=== PATIENT | female | born 1980 | race Caucasian/White ===

== ENCOUNTER 2019-09-06 11:46 | Emergency (ER) | payer MEDICARE, MEDICAID ==
[2019-09-06 11:58] VITALS: BP 125/77; PULSE 98
[2019-09-06] MEDS ORDERED: LORazepam 2 MG/ML SDV IVPUSH ONE (12:10)
[2019-09-06] MEDS ORDERED: Sodium Chloride 0.9% 10 ML Syringe FLUSH PRN (12:14)
[2019-09-06] MEDS ORDERED: Sodium Chloride 0.9% 1,000 ML IV SCH (12:15)
--- NOTE | 2019-09-06 12:23 | EDM.PDOC ---
ED HPI GENERAL MEDICAL PROBLEM - General Chief Complaint: Neurological Problem Stated Complaint: [facility] Time Seen by Provider: 09/06/19 12:04 Source of Information: Reports: Patient History Limitations: Reports: No Limitations - History of Present Illness INITIAL COMMENTS - FREE TEXT/NARRATIVE: Patient is a 38-year-old female who presents via EMS today with complaints of a seizure. Patient is a resident of [facility]. She does have a history of complex partial seizures but has been fairly well-controlled on her current medication regimen which is Trileptal 600 mg twice daily Patient's care staff states that prior to the ambulance being summoned, the patient was sitting in a chair and she went unresponsive, lips turned blue, and she stiffened up for what they thought was maybe a couple minutes. The caregiver states that there were no tonic-clonic movements with this seizure and she did not fall from the chair. After this she did regain consciousness and has been acting appropriate since that time. Her caregiver states that just prior to this occurring she had notified them that she's been having some frequency and burning with urination so they were in the process of getting a urinalysis on her. The caregiver also reports that often times when she does have seizures, she has a low sodium level. She states that they have been restricting her water intake as excessive water intake was determined to be the cause of her low sodium. Prior to today her last seizure was in April 2018. Her neurologist is Dr. Aragon and she does have an appointment scheduled with him this coming Monday. Patient states that she is feeling normal at this time. She denies any nausea or headache. - Related Data Allergies Allergy/AdvReac Type Severity Reaction Status Date / Time Penicillins Allergy Other Verified 09/06/19 11:58 Home Meds: Home Meds Citalopram [Celexa] 40 mg PO BID 07/06/16 [History] ClomiPRAMINE [ClomiPRAMINE HCl] 50 mg PO DAILY 07/06/16 [History] ClonazePAM [KlonoPIN] 0.5 mg PO BID 07/06/16 [History] LORazepam [Ativan] 0.25 mg PO TID PRN 07/06/16 [History] Levonorgestrel-Ethin Estradiol [Introvale 0.15-0.03 mg Tablet] 1 dose PO DAILY 07/06/16 [History] Levothyroxine [Synthroid] 50 mcg PO ACBREAKFAST 07/06/16 [History] Magnesium Oxide 400 mg PO BID 07/06/16 [History] Multivit-Min/FA/Lycopen/Lutein [Certavite Sr with Lutein Tab] 1 each PO DAILY [History] OXcarbazepine [Trileptal] 600 mg PO BID 07/06/16 [History] QUEtiapine Fumarate [Seroquel] 50 mg PO BEDTIME 07/06/16 [History] QUEtiapine [SEROquel] 25 mg PO BID 07/06/16 [History] atoMOXetine HCl [Strattera] 80 mg PO DAILY 07/06/16 [History] Past Medical History HEENT History: Reports: Impaired Vision Neurological History: Reports: Seizure Psychiatric History: Reports: Developmental Delay Social & Family History - Tobacco Use Smoking Status *Q: Never Smoker - Caffeine Use Caffeine Use: Reports: None - Recreational Drug Use Recreational Drug Use: No - Living Situation & Occupation Living situation: Reports: Extended Care Facility Occupation: Disabled ED ROS GENERAL - Review of Systems Review Of Systems: Comprehensive ROS is negative, except as noted in HPI. - Physical Exam Exam: See Below Exam Limited By: No Limitations General Appearance: Alert, WD/WN, No Apparent Distress Eye Exam: Bilateral Eye: PERRL Throat/Mouth: Normal Inspection, Normal Lips, Normal Oropharynx, No Airway Compromise. No: Evidence of Tongue Biting Head Exam: Atraumatic, Normocephalic Respiratory/Chest: No Respiratory Distress, Lungs Clear, Normal Breath Sounds, No Accessory Muscle Use, Chest Non-Tender Cardiovascular: Normal Peripheral Pulses, Regular Rate, Rhythm, No Edema, No Murmur GI/Abdominal: Normal Bowel Sounds, Soft, Non-Tender Neuro Exam (Abbreviated): Alert, Oriented, Normal Cognition, Normal Reflexes, No Motor/Sensory Deficits Psychiatric: Normal Affect, Normal Mood Skin Exam: Warm, Dry, Intact, Normal Color, No Rash Course - Vital Signs Last Recorded V/S: Last Vital Signs Temp 96.8 F 09/06/19 11:54 Pulse 98 09/06/19 11:54 Resp 19 09/06/19 11:54 BP 125/77 09/06/19 11:54 Pulse Ox 95 09/06/19 11:54 - Orders/Labs/Meds Orders: Active Orders 24 hr Category Date Time Status Cardiac Monitoring [RC] . DIRECTED Care 09/06/19 12:14 Active Peripheral IV Care [RC] . DIRECTED Care 09/06/19 12:14 Active OXCARBAZEPINE [REF] Routine Lab 09/06/19 11:56 Received Sodium Chloride 0.9% [Normal Saline] 1,000 ml Med 09/06/19 12:15 Active IV ASDIRECTED Sodium Chloride 0.9% [Saline Flush] Med 09/06/19 12:14 Active 10 ml FLUSH ASDIRECTED PRN Peripheral IV Insertion Adult [OM.PC] Stat Oth 09/06/19 12:14 Ordered Medication Orders Sodium Chloride (Normal Saline) 1,000 mls @ 999 mls/hr IV ASDIRECTED MELLY Last Admin: 09/06/19 12:23 Dose: 150 mls/hr Sodium Chloride (Saline Flush) 10 ml FLUSH ASDIRECTED PRN PRN Reason: Keep Vein Open Last Admin: 09/06/19 12:23 Dose: 10 ml Labs: Laboratory Tests 09/06/19 09/06/19 09/06/19 Range/Units 11:56 11:56 14:03 WBC 3.79 L (3.98-10.04) K/mm3 RBC 4.42 (3.98-5.22) M/mm3 Hgb 13.5 (11.2-15.7) gm/dl Hct 40.3 (34.1-44.9) % MCV 91.2 D (79.4-94.8) fl MCH 30.5 (25.6-32.2) pg MCHC 33.5 (32.2-35.5) g/dl RDW Std Deviation 42.2 (36.4-46.3) fL Plt Count 274 (182-369) K/mm3 MPV 10.4 (9.4-12.3) fl Neut % (Auto) 60.8 (34.0-71.1) % Lymph % (Auto) 26.6 (19.3-51.7) % [place] % (Auto) 12.1 (4.7-12.5) % Eos % (Auto) 0 L (0.7-5.8) Baso % (Auto) 0.5 (0.1-1.2) % Neut # (Auto) 2.30 (1.56-6.13) K/mm3 Lymph # (Auto) 1.01 L (1.18-3.74) K/mm3 [place] # (Auto) 0.46 H (0.24-0.36) K/mm3 Eos # (Auto) 0.00 L (0.04-0.36) K/mm3 Baso # (Auto) 0.02 (0.01-0.08) K/mm3 Sodium 131 L (136-145) mEq/L Potassium 4.0 (3.5-5.1) mEq/L Chloride 95 L (98-107) mEq/L Carbon Dioxide 20 L (21-32) mEq/L Anion Gap 20.0 H (5-15) BUN 19 H (7-18) mg/dL Creatinine 0.7 (0.55-1.02) mg/dL Est Cr Clr Drug Dosing 78.27 mL/min Estimated GFR (MDRD) > 60 (>60) mL/min BUN/Creatinine Ratio 27.1 H (14-18) Glucose 113 H (74-106) mg/dL Calcium 8.8 (8.5-10.1) mg/dL Total Bilirubin 0.3 (0.2-1.0) mg/dL AST 25 (15-37) U/L ALT 28 (14-59) U/L Alkaline Phosphatase 68 (46-116) U/L Total Protein 7.5 (6.4-8.2) g/dl Albumin 3.7 (3.4-5.0) g/dl Globulin 3.8 gm/dL Albumin/Globulin Ratio 1.0 (1-2) Urine Color Yellow (Yellow) Urine Appearance Clear (Clear) Urine pH 7.0 (5.0-8.0) Ur Specific [place] > or = 1.030 (1.005-1.030) Urine Protein 1+ H (Negative) Urine Glucose (UA) Negative (Negative) Urine Ketones Trace H (Negative) Urine Occult Blood Negative (Negative) Urine Nitrite Negative (Negative) Urine Bilirubin Negative (Negative) Urine Urobilinogen 0.2 (0.2-1.0) Ur Leukocyte Esterase Trace H (Negative) Urine RBC 0-5 (0-5) /hpf Urine WBC 0-5 (0-5) /hpf Ur Squamous Epith Cells 0-5 (0-5) /hpf Amorphous Sediment Few H (NOT SEEN) /hpf Urine Bacteria Few (FEW) /hpf Urine Mucus Moderate H (FEW) /hpf Meds: Medications Generic Name Dose Route Start Last Admin Trade Name Abdulaziz PRN Reason Stop Dose Admin Sodium Chloride 1,000 mls @ 999 mls/hr 09/06/19 12:15 09/06/19 12:23 Normal Saline IV 150 mls/hr ASDIRECTED MELLY Administration Sodium Chloride 10 ml 09/06/19 12:14 09/06/19 12:23 Saline Flush FLUSH 10 ml ASDIRECTED PRN Administration Keep Vein Open Discontinued Medications Generic Name Dose Route Start Last Admin Trade Name Freq PRN Reason Stop Dose Admin Lorazepam 0.5 mg 09/06/19 12:10 09/06/19 12:23 Ativan IVPUSH 09/06/19 12:11 0.5 mg ONETIME ONE Administration - Re-Assessments/Exams Free Text/Narrative Re-Assessment/Exam: On exam, patient is alert, oriented and acting appropriately. She does not remember the events of the seizure, however she does remember the events since the seizure occurred. Is no evidence of injury to her mouth. She did not fall and hit her head and she does have a chronic seizure disorder, so do not feel that a head CT is necessary at this time. We will check routine labs to include a CBC, CMP, and oxcarbazepine level. We will also check a urinalysis as the patient has been complaining of dysuria and frequency. I will give Ativan 0.5 mg IV to prevent further seizure activity as well as normal saline at 125 ml/hr. 09/06/19 12:45 Patient's sodium is mildly low at 131. Any gap is elevated at 20.0. We will increase her normal saline rate bolus 1 L. 09/06/19 14:46 Urinalysis is negative for any infection. Oxcarbazepine levels are send out labs of these results would not be available while in the ER today. Patient is feeling well and anxious to leave. There is been no further seizure activity since she arrived to the ER. I do not feel any adjustments are necessary in her medications today as overall she has been well-managed on this regimen. She does have a appointment with her neurologist on Monday. Recommend that they update him on today's occurrences. If she should have any recurrence of seizures over the weekend, I did recommend that they return to the emergency department. Departure - Departure Time of Disposition: 14:48 Disposition: Home, Self-Care 01 Condition: Good Clinical Impression: Breakthrough seizure - Discharge Information *PRESCRIPTION DRUG MONITORING PROGRAM REVIEWED*: No *COPY OF PRESCRIPTION DRUG MONITORING REPORT IN PATIENT [place]: No Instructions: Epilepsy, [id number], Seizure, Adult, [id number] Referrals: María Dawn MD [Primary Care Provider] - Forms: ED Department Discharge Additional Instructions: You were seen in the emergency department today after having a seizure at home. Lab lab work was done and did show that your sodium was mildly low at 131, but was otherwise normal. You did receive a liter of IV fluids while in the ER as well as a dose of Ativan. A urinalysis was completed and it was negative for any infection. There were no further seizures while in the ER. At this time, we recommend that you continue your current medication regimen. We did send out for an oxcarbazepine level to be completed. These results will likely not be available until early next week. Your neurologist may request these results on Monday or Monday. Keep your appointment with your neurologist on Monday and discuss today's occurrences with him at that time. If you should experience any recurrent seizures or any other concerning symptoms , please do not hesitate to return to the emergency department. Sepsis Event Note - Evaluation Sepsis Screening Result: No Definite Risk - Focused Exam Vital Signs: Vital Signs Temp Pulse Resp BP Pulse Ox 09/06/19 11:54 96.8 F 98 19 125/77 95 Date Exam was Performed: 09/06/19 Time Exam was Performed: 14:51 - My Orders Last 24 Hours: My Active Orders 09/06/19 11:56 OXCARBAZEPINE [REF] Routine 09/06/19 12:14 Cardiac Monitoring [RC] . DIRECTED Peripheral IV Care [RC] . DIRECTED Sodium Chloride 0.9% [Saline Flush] 10 ml FLUSH ASDIRECTED PRN Peripheral IV Insertion Adult [OM.PC] Stat 09/06/19 12:15 Sodium Chloride 0.9% [Normal Saline] 1,000 ml IV ASDIRECTED - Assessment/Plan Last 24 Hours: My Active Orders 09/06/19 11:56 OXCARBAZEPINE [REF] Routine 09/06/19 12:14 Cardiac Monitoring [RC] . DIRECTED Peripheral IV Care [RC] . DIRECTED Sodium Chloride 0.9% [Saline Flush] 10 ml FLUSH ASDIRECTED PRN Peripheral IV Insertion Adult [OM.PC] Stat 09/06/19 12:15 Sodium Chloride 0.9% [Normal Saline] 1,000 ml IV ASDIRECTED
== END 2019-09-06 15:12 | disposition home or self-care (01) ==
LOC: JD.ED 11:46
DX: G40.909 Epilepsy, unspecified, not intractable, without status epilepticus (principal); Z88.0 Allergy status to penicillin; Z79.899 Other long term (current) drug therapy
CPT/HCPCS: 36415; 80053; 80183; 81001; 85025; 96361; 96374; 99284; J2060; J7030; 99283

== ENCOUNTER 2023-08-05 15:35 | Emergency (ER) | payer MEDICARE ==
[2023-08-05] MEDS ORDERED: Sodium Chloride 0.9% 10 ML Syringe FLUSH PRN (16:23)
[2023-08-05 17:03] LABS: BASOPHILS PERCENT AUTO 0.7 % (0.0-1.0); EOSINOPHILS PERCENT AUTO 0.7 % (0.0-6.0); HEMATOCRIT 38.8 % (37.0-47.0); HEMOGLOBIN 13.3 gm/dl (12.0-16.0); IMMATURE GRAN ABSOLUTE AUTO 0.01 K/mm3 (0.00-0.05); IMMATURE GRAN PERCENT AUTO 0.2 % (0.0-0.4); LYMPHOCYTES ABSOLUTE AUTO 0.7 K/mm3 (1.0-4.8); LYMPHOCYTES PERCENT AUTO 15.8 % (24.0-44.0); MEAN CORPUSCULAR HEMOGLOBIN 30.4 pg (28.0-32.0); MEAN CORPUSCULAR HGB CONC 34.3 g/dl (32.0-36.0); MEAN CORPUSCULAR VOLUME 88.8 fl (83.0-99.0); MONOCYTES ABSOLUTE AUTO 0.4 K/mm3 (0.0-0.8); MONOCYTES PERCENT AUTO 9.3 % (0.0-8.0); NEUTROPHILS ABSOLUTE AUTO 3.2 K/mm3 (1.8-7.7); NEUTROPHILS PERCENT AUTO 73.3 % (41.0-71.0); PLATELET COUNT,PLT 295 K/mm3 (150-400); RED BLOOD CELL COUNT 4.37 M/mm3 (4.10-5.30); WHITE BLOOD CELL COUNT,WBC 4.42 K/mm3 (3.9-11.3)
[2023-08-05 17:30] LABS: A/G RATIO 0.8 (1-2); ALBUMIN 3.4 g/dl (3.4-5.0); ANION GAP 9.3 (5-15); BILIRUBIN TOTAL 0.3 mg/dL (0.2-1.0); C-REACTIVE PROTEIN 1.9 mg/dL (<1.0); CALCIUM 8.8 mg/dL (8.5-10.1); CREATININE 0.6 mg/dL (0.55-1.02); EST CRCL DRUG DOSING (CG) 92.17 mL/min; POTASSIUM,K 4.3 mEq/L (3.5-5.1); PROTEIN TOTAL,TP 7.6 g/dl (6.4-8.2)
[2023-08-05] MEDS ORDERED: Iopamidol 612 MG/ML 100 ML Bottle IVPUSH ONE (17:42)
[2023-08-05] MEDS: Sodium Chloride 0.9% 10 ML Syringe FLUSH ONE ×2 (17:45→18:25)
[2023-08-05] MEDS ORDERED: Acetaminophen 325 MG Tab PO ONE (18:28)
[2023-08-05 18:53] LABS: APPEARANCE,URINE CLOUDY (Clear); BILIRUBIN,URINE NEGATIVE (Negative); COLOR,URINE YELLOW (Yellow); GLUCOSE,URINE NEGATIVE (Negative); KETONES,URINE NEGATIVE (Negative); LEUKOCYTE ESTERASE,URINE 3+ (Negative); NITRITE,URINE NEGATIVE (Negative); OCCULT BLOOD,URINE 1+ (Negative); PROTEIN,URINE TRACE (Negative); UROBILINOGEN,URINE 0.2 (0.2-1.0)
[2023-08-05] MEDS ORDERED: Cefdinir 300 MG Cap PO ONE (19:01)
[2023-08-05 19:07] LABS: BACTERIA,URINE MODERATE /hpf (FEW); MUCUS,URINE FEW /hpf (FEW); WBC,URINE 75-100 /hpf (0-5)
[2023-08-05 19:46] VITALS: BP 133/87; PULSE 94
== END 2023-08-05 19:27 | disposition home or self-care (01) ==
LOC: JD.ED 15:35
DX: N39.0 Urinary tract infection, site not specified (principal); K59.00 Constipation, unspecified; Z86.16 Personal history of COVID-19; Z79.899 Other long term (current) drug therapy; Z88.0 Allergy status to penicillin
CPT/HCPCS: 36415; 74177; 80053; 81001; 84703; 85025; 86140; 87086; 99284; A9270; J3490; Q9967

== ENCOUNTER 2024-05-26 20:37 | Emergency (ER) | payer MEDICARE, MEDICAID ==
[2024-05-26] MEDS: Acetaminophen 325 MG Tab PO ONE (21:37)
[2024-05-26 23:42] VITALS: BP 130/69; PULSE 64
== END 2024-05-26 23:41 | disposition home or self-care (01) ==
LOC: JD.ED 20:37
DX: S52.122A Displaced fracture of head of left radius, initial encounter for closed fracture (principal); S52.092A Other fracture of upper end of left ulna, initial encounter for closed fracture; Z86.16 Personal history of COVID-19; Z79.899 Other long term (current) drug therapy; Z88.0 Allergy status to penicillin; W01.0XXA Fall on same level from slipping, tripping and stumbling without subsequent striking against object, initial encounter
CPT/HCPCS: 29105; 73080; 99283; A9270

== ENCOUNTER 2024-05-31 08:37 | Emergency (ER) | payer MEDICARE, MEDICAID ==
[2024-05-31 09:37] VITALS: BP 119/80; PULSE 87
== END 2024-05-31 09:32 | disposition home or self-care (01) ==
LOC: JD.ED 08:37
DX: S42.402A Unspecified fracture of lower end of left humerus, initial encounter for closed fracture (principal); M79.89 Other specified soft tissue disorders; Z86.16 Personal history of COVID-19; Z79.899 Other long term (current) drug therapy; Z91.048 Other nonmedicinal substance allergy status; Z88.0 Allergy status to penicillin
CPT/HCPCS: 99283